=== PATIENT | male | born 1945 | race Caucasian/White ===

== ENCOUNTER 2018-04-06 17:37 | Emergency (ER) | payer OTHER ==
[2018-04-06] MEDS ORDERED: IBUPROFEN 600 MG TAB PO ONE (18:12)
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
[2018-04-06 19:43] VITALS: BP 138/84
== END 2018-04-06 19:35 | disposition home or self-care (01) ==
LOC: CED 17:37
DX: S06.0X0A Concussion without loss of consciousness, initial encounter (principal); S00.81XA Abrasion of other part of head, initial encounter; V18.0XXA Pedal cycle driver injured in noncollision transport accident in nontraffic accident, initial encounter; Y92.828 Other wilderness area as the place of occurrence of the external cause
CPT/HCPCS: 70450-PO; 73030-PO